=== PATIENT | male | born 1980 | race Caucasian/White ===

== ENCOUNTER 2025-10-15 09:55 | Emergency (ER) | payer OTHER, SELFPAY ==
--- OUTSIDE RECORDS SUMMARY | 2025-03-10 08:15 | XMS_ITS | Continuity of Care Document ---
Author Organization [facility] Address [address] [place] [place] [address] Phone Care Team Providers Care Planer Offbearer Name Role Phone Marlene Talbert Unavailable Unavailable Allergies, Adverse Reactions, Alerts Substance Reaction Status Criticality No Known Allergies Active No Inform ation Medications Medication Instructions Dosage Effective Dates (start - stop) Status Comments Kenalog 40 mg/mL suspension for injection Administered in the office - No Longer Active Kenalog 40 mg/mL suspension for injection Administered in the office - No Longer Active dexamethasone sodium phosphate 10 mg/mL injection solution Administered in the office - No Longer Active amoxicillin 875 mg-potassium clavulanate 125 mg tablet take 1 tablet by oral route every 12 hours 1.00 tablet - No Longer Active Procedures Procedure Date Decadron Dexamethasone sodium phos Per1 Mg Inj Kenalog Triamcinolone acetonide Inj Per 10mg Kenalog Triamcinolone acetonide Inj Per 10mg THER/PROPH/DIAG INJ, SC/IM OFFICE/OUTPATIENT VISIT, NEW Advance Directives Directive Yes / No Effective Date File Name No Information Encounters Encounter Description Practice Location Reason(s) For Visit Diagnoses Date Provider Providers Copied on Encounter OFFICE/OUTPA TIENT VISIT, NEW [facility], [address], [place], [place], [id number], [place] tel:[phone] [facility] Sinus symptoms (chief complaint) Upper respiratory infectionUnspecified acute lower respiratory infectionShortness of breathCough Jd Rosario. [address], [address], [place], [address], . [phone] Referring Provider: Marlene Miles, [address], [place], [address]. tel:[phone] Family History Family Member Type Diagnosis Age At Onset Problem Family history of Alzheimer' s disease Problem Family history of Diabetes m ellitus Problem Family history of Hypertensi on Problem Family history of Cardiovasc ular disease Problem Family history of Cancer, un known type Payers Payer name Insurance type Covered green party ID Robert martins(s) formerly [facility] [id number] Social History Type Description Quantity Date Captured Comments Alcohol Use Details Unknown Caffeine Use Details Unknown Tobacco Use Status Current non-smoker Smoking Status Never smoker Non-Smoking Tobacco Use Details : No Details Available : No Details Available Sex Male Vital Signs Date / Time: Height Weight BMI Pulse Rate Blood Pressure Temperature Respiratory Rate Body Surface Area Head Circumference Head Circ. Percentile Wt./[place]. Percentile BMI percentile Pulse Ox Inhaled Ox 2:31 PM 68.00 in 81.647 kg (180.00 lbs) 27.3 7 kg/m eter (2) 89 /min 146/98 mm[Hg] 98.30 F 15 /min 99 % Chief Complaint And Reason For Visit From encounter dated '03/10/2025 14:15'. Sinus symptoms (chief complaint). Description: Onset: 3 Days. The severity of the problem is mild. The problem has worsened. The symptoms are intermittent. Both sides are affected. Pertinent/initial symptoms include facial pain, facial pressure, sinus congestion, sinus pain and sinus pressure. Symptoms are associated with recent URI. Aggravating factors include dry air and leaning forward. Deniesrelieving factors. Associated symptoms include cough, headache, nasal drainage, postnasal drainage,rhinorrhea, sinus pressure and sore throat. Pertinent negatives include anosmia, dental disease, deviated septum, fever, halitosis, immunosuppression, nasal obstruction, orbital swelling, otalgia, too th pain or tooth sensitivity. Additional information: Pt presents to with c/o URI s/s. Pt reports clear mucous, headache, postnasal drainage, and sinus pain/pressure. Reason For Referral Reason For Referral No Information Plan Of Treatment Date Type Action Status Goal Tdap. Due on due Goal Lipid panel. Due on 025 due Goal Influenza vaccine. Due on due Goal Depression screening. Due on due Goal Hepatitis C screening. Due o n due Goal Unhealthy drug use screening . Due on due Goal Td vaccine. Due on due History Of Present Illness Encounter Date Complaint History Of Prese nt Illness Sinus symptoms Onset: 3 Days. T he severity of the problem is mild. The problem has worsened. The symptoms are intermittent. Both sides are affected. Pertinent/initial symptoms include facial pain, facial pressure, sinus congestion, sinus pain and sinus pressure. Symptoms are associated with recent URI. Aggravating factors include dry air and leaning forward. Denies relieving factors. Associated symptoms include cough, headache, nasal drainage, postnasal drainage, rhinorrhea, sinus pressure and sore throat. Pertinent negatives include anosmia, dental disease, deviated septum, fever, halitosis, immunosuppression, nasal obstruction, orbital swelling, otalgia, tooth pain or tooth sensitivity. Additional information: Pt presents to with c/o URI s/s. Pt reports clear mucous, headache, postnasal drainage, and sinus pain/pressure. Functional Status Date Functional Assessmen t No Information Instructions Date Instruction Additional Infor sweta 10 mg dexamethasone and 40 mg kenalog IM injection given in clinic today. Patient education given on medication and side effects. Related to Unspecified acute lower respiratory infection Provider suspects UR I. Possible Prescribed amoxicillin potassium clavulanate. Patient advised to drink plenty of clear fluids and to use tylenol or ibuprofen PRN pain/fever. Patient educated on typical 7 - 14 day length of time for most viral URIs. Patient is to RTC if fever develops, worsening facial pain, copious amounts of thick, colored drainage, cough that causes SOB or wheezing, or symptoms persist. Patient had no further questions at this time. Provider ordered IM dexamethasone and triamcinolone. Injection area cleaned using a new isopropyl alcohol preparation pad prior to administration. 10 mg Decadron with 40 mg Kenalog administered intramuscularly in left dorsogluteal muscle using aseptic technique and a 22 gauge 1.5 needle. Needle removed intact. Injection site covered with a new, clean, adhesive bandage. Patient tolerated without complaint. Related to Upper respiratory infection Assessments Type Assessment Date assessment Upper respiratory infection assessment Unspecified acute lower respirat ory infection assessment Shortness of breath assessment Cough impression Patient presented to clinic with 3 days of cough, nasal congestion with yellow drainage, fatigue, sinus pressure at the maxillary sinuses, headache and chest congestion. Lungs are coarse bilaterally on auscultation. Patient states that he is subject to sick contacts at work. He has been using mucinex and sudafed and it is helping a little. Mental Status Date Cognitive Assessment Orientation - Lock[place] ed to time, place, person, situation. Patient Care Teams Name Effective Dates (start - stop) Status Members No Information
[2025-10-15 09:58] VITALS: BP 166/108; PULSE 106; RESP 17; TEMP 36.4; O2SAT 98; BMI 25.0
--- NOTE | 2025-10-15 10:01 | CTR_ITS ---
PROCEDURE INFORMATION: Exam: CT Abdomen And Pelvis With Contrast Exam date and time: 10/15/2025 10:11 AM Age: 45 years old Clinical indication: Abdominal pain; Localized; Left lower quadrant (llq); Prior surgery; Surgery date: 6+ months; Surgery type: Umbilical hernia with mesh; Additional info: Llq pain TECHNIQUE: Imaging protocol: Computed tomography of the abdomen and pelvis with contrast. Radiation optimization: All CT scans at this facility use at least one of these dose optimization techniques: automated exposure control; mA and/or kV adjustment per patient size (includes targeted exams where dose is matched to clinical indication); or iterative reconstruction. Contrast material: OMNIPAQUE; Contrast volume: 100 ml; Contrast route: INTRAVENOUS (IV); COMPARISON: No relevant prior studies available. RADIATION DOSE METRICS: Total DLP (mGy-cm): 486.5 FINDINGS: Liver: Normal. No mass. Gallbladder and biliary ducts: Normal. No calcified stones. No ductal dilation. Pancreas: Normal. No ductal dilation. Spleen: Normal. No splenomegaly. Adrenal glands: Normal. No mass. Kidneys and ureters: Few bilateral renal cysts are identified. There is no hydronephrosis. Stomach and bowel: There is sigmoid colon diverticulosis identified with an inflamed sigmoid colon diverticulum best seen from images 59-61 of series 3. There is abnormal thickening of the wall of most of the sigmoid colon. There is no bowel obstruction. Appendix: No evidence of appendicitis. Intraperitoneal space: Unremarkable. No free air. No significant fluid collection. Vasculature: Unremarkable. No abdominal aortic aneurysm. Lymph nodes: Unremarkable. No enlarged lymph nodes. Urinary bladder: Unremarkable as visualized. Reproductive: Unremarkable as visualized. Bones/joints: Unremarkable. No acute fracture. Soft tissues: Unremarkable. CT/CT abdomen pelvis w con* [id number] IMPRESSION: Sigmoid diverticulitis/colitis. COMMENTS: Consistent with the [employer]'s Incidental Findings Committee white paper (J Am Jim Radiol 2018): Any incidental renal lesion less than 1 cm or classified as too small to characterize, or any incidental cystic renal lesion characterized as simple-appearing, is likely benign. No follow-up imaging is recommended for these lesions per consensus recommendations based on imaging criteria.
--- NOTE | 2025-10-15 10:01 | ED_ITS ---
HPI - Abdominal Pain 2 General: Chief Complaint: Abdominal Pain Stated Complaint: Lower L ABD Pain x2 days Time Seen by Provider: 10/15/25 09:58 Source: patient Mode of arrival: ambulatory Limitations: no limitations History of Present Illness: 45-year-old male states been had left lo wer quadrant abdominal pain over the last 2 days. States pains been sharp in nature he rates it a 6 out of 10 and is worse with palpation. He denies any fevers denies any vomiting or diarrhea. Has had a history of a hernia repair in the past no history of diverticulitis. Related Data Previous Rx's ?Medication ?Instructions ?Recorded ciprofloxacin HCl 500 mg tablet 500 mg PO BID #14 tabs 10/15/25 (Cipro) hydrocodone 5 mg-acetaminophen 325 1 tab PO Q6H PRN pa in #14 tabs 10/15/25 mg tablet metronidazole 500 mg tablet 500 mg PO Q8H 7 days #21 t abs 10/15/25 ondansetron 4 mg disintegrating 4 mg PO Q6H PRN nausea and 10/15/25 tablet vomiting #14 tabs Allergies Allergy/AdvReac Type Severity Reaction Status Date / Time No Known Allergies Allergy Verified 10/15/25 10:07 Review of Systems 2 GI: Reports: abdominal pain Physical Exam 2 Const: COMMON NORMALS: no acute distress, patient oriented x3 and healthy appearing HENMT: COMMON NORMALS: normocephalic and atraumatic HEAD & SCALP: n ormocephalic and atraumatic Neck/C-Spine: COMMON NORMALS: full ROM and supple Chest: COMMONS NORMALS: normal inspection of the chest Resp: COMMON NORMALS: normal respiratory effort, No retractions, No use of accessory muscles and clear to auscultation bilaterally AUSCULTATION: clear to auscultation bilaterally Cardio: COMMON NORMALS: regular rate, regular rhythm and No murmurs present (Cardio) RATE: regular rate RHYTHM: regular rhythm GI: COMMON NORMALS: Normal to inspection, nondistended, normoactive bowel sounds present, Soft to palpation and no masses PALPATION: Yes Soft to palpation and Yes Tenderness to palpation present (GI) Details: LLQ Extremity: COMMON NORMALS: normal to inspection and full ROM Neuro: COMMON NORMALS: patient oriented x3, moves all extremities and no focal motor deficits Psych: COMMON NORMALS: mental status grossly normal, Normal thought process present and cooperative THOUGHT PROCESS: Normal thought process present Skin: COMMON NORMALS: no rashes or lesions noted and no wounds GENERAL SKIN EXAM: no rashes or lesions noted Course 2 Vital Signs: Vital signs: Vital Signs Temperature 97.6 F 10/15/25 09:58 Pulse Rate 106 H 10/15/25 09:58 Respiratory Rate 17 10/15/25 09:58 Blood Pressure 166/108 10/15/25 09:58 Pulse Oximetry 98 10/15/25 09:58 Oxygen Delivery Me thod Room Air 10/15/25 09:58 MDM - Abdominal Pain Medical Decision Making 45-year-old male presents here with lower abdominal pain for 2 days. Differential includes diverticulitis, bowel obstruction, appendicitis. Patient's blood work shows no significant abnormality white count here is normal he is afebrile here. CT does show a diverticulitis likely cause of his pain. I feel he is able to be treated outpatient will start him on Cipro Flagyl, hydrocodone and Zofran. Will get him follow-up with surgery I did go over all these findings with patient. He is to return if worsening he understands agrees to plan. Medical Records I reviewed the patient's medical records. Lab Data I reviewed the patient's lab results. 10/15/25 10:10 10/15/25 10:10 Labs/Radiology: Radiology Impressions Abdomen/Pelvis CT 10/15/25 10:01 IMPRESSION: Sigmoid diverticulitis/colitis. COMMENTS: Consistent with the [employer]'s Incidental Findings Committee white paper (J Am Jim Radiol 2018): Any incidental renal lesion less than 1 cm or classified as too small to characterize, or any incidental cystic renal lesion characterized as simple-appearing, is likely benign. No follow-up imaging is recommended for these lesions per consensus recommendations based on imaging criteria. Laboratory Results WBC 7.02 10^3/uL (3.29-11.43) 10/15/25 10:10 RBC 5.79 10^6/uL (3.85-5.65) H 10/15/25 10:10 Hgb 14.20 g/dL (11.27-16.99) 10/15/25 10:10 Hct 43.7 % (37-53) 10/15/25 10:10 MCV 75.5 fl (82-101) L 10/15/25 10:10 MCH 24.5 pg (27-33) L 10/15/25 10:10 MCHC 32.5 g/dL (30-55) 10/15/25 10:10 RDW 13.1 % (12.1-15.1) 10/15/25 10:10 Plt Count 257 10^3/cmm (157-399) 10/15/25 10:10 MPV 10.2 fL (7.4-10.4) 10/15/25 10:10 Neut % (Auto) 79.5 % 10/15/25 10:10 Lymph % (Auto) 14.2 % 10/15/25 10:10 [place] % (Auto) 4.8 % 10/15/25 10:10 Eos % (Auto) 0.6 % 10/15/25 10:10 Baso % (Auto) 0.6 % 10/15/25 10:10 Neut # (Auto) 5.58 10^3/uL (1.8-7.7) 10/15/25 10:10 Lymph # (Auto) 1.0 10^3/uL (0.8-4.8) 10/15/25 10:10 [place] # (Auto) 0.3 10^3/uL (0.2-0.9) 10/15/25 10:10 Eos # (Auto) 0.0 10^3/uL (0.0-0.8) 10/15/25 10:10 Baso # (Auto) 0.0 10^3/uL (0.0-0.1) 10/15/25 10:10 Nucleated RBC % (auto) 0 % 10/15/25 10:10 Nucleated RBCs # 0.0 /100WBC 10/15/25 10:10 Sodium 137 mmol/L (136-145) 10/15/25 10:10 Potassium 3.4 mmol/L (3.5-5.1) L 10/15/25 10:10 Chloride 99 mmol/L (98-107) 10/15/25 10:10 Carbon Dioxide 25 mmol/L (22-29) 10/15/25 10:10 Anion Gap 16.4 (5-19) 10/15/25 10:10 BUN 16 mg/dL (6-20) 10/15/25 10:10 Creatinine 0.9 mg/dL (0.7-1.2) 10/15/25 10:10 GFR Calculation 92.1 mL/min (90-130) 10/15/25 10:10 Glucose 102 mg/dL (65-115) 10/15/25 10:10 Calculated Osmolality 285 mOsm/kg (285-295) 10/15/25 10:10 Calcium 9.3 mg/dL (8.5-10.5) 10/15/25 10:10 Total Bilirubin 0.6 mg/dL (0.15-1.2) 10/15/25 10:10 AST 18 U/L (0-40) 10/15/25 10:10 ALT 18 U/L (0-41) 10/15/25 10:10 Alkaline Phosphatase 80 U/L (40-130) 10/15/25 10:10 Total Protein 7.9 g/dL (6.6-8.7) 10/15/25 10:10 Albumin 4.8 g/dL (3.5-5.2) 10/15/25 10:10 Globulin 3.1 g/dL (1.3-4.6) 10/15/25 10:10 Lipase 113 U/L (13-60) H 10/15/25 10:10 All radiology interpretation(s) finalized by discharge Discharge Plan Discharge Patient Disposition: Home Clinical Impression: Diverticulitis Condition: Stable Prescriptions: New hydrocodone-acetaminophen 5-325 mg tablet 1 tab PO Q6H PRN (Reason: pain) Qty: 14 0RF metronidazole 500 mg tablet 500 mg PO Q8H 7 Days Qty: 21 0RF ciprofloxacin HCl [Cipro] 500 mg tablet 500 mg PO BID Qty: 14 0RF ondansetron 4 mg tablet,disintegrating 4 mg PO Q6H PRN (Reason: nausea and vomiting) Qty: 14 0RF Discharge Orders: Discharge ED (Routine); Ordered 10/15/25 Ordered By: Luis Dooley Referrals: Fernando Park MD [Physician, General Surgery] - 4-7 days Discharge Diet: Advance as tolerated Discharge Activity: Resume usual activity Patient Instructions: Diverticulitis (ED), Opioid Safety Print Language: German Coding Level of Care Code ED Towboat Engineer for Rachel Amanda
--- OUTSIDE RECORDS SUMMARY | 2025-10-15 10:05 | XMS_ITS | Encounter Summary ---
Author Organization [facility] Address [address] [place] [address] Care Team Providers Care Swing Grinder Name Role Phone Unavailable Primary Care Provider Unavailabl e Encounter Details Date Type Department Care Team (Latest Contact Info) Description 07/11/1999 Outpatient Historical [facility] [address] [place] [phone] Araceli Boyer DO NO ADDRESS ON FILE Unspecified gastritis and gastroduodenitis without mention of hemorrhage (Primary Dx); Acute pharyngitis Social History Tobacco Use Types Packs/Day Years Used Date Smoking Tobacco: Never Assessed Sex and Gender Information Value Date Recorded Sex Assigned at Not on file 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
--- OUTSIDE RECORDS SUMMARY | 2025-10-15 10:05 | XMS_ITS | Encounter Summary ---
Author Organization [facility] Address [address] [place] [address] Care Team Providers Care Career Development Coordinator/Teacher Name Role Phone Unavailable Primary Care Provider Unavailabl e Encounter Details Date Type Department Care Team (Latest Contact Info) Description 09/03/1999 Outpatient Historical [facility] [address] [place] [address] Araceli Boyer, NO ADDRESS ON FILE Injury, other and unspecified, trunk (Primary Dx); Allergic rhinitis, cause unspecified Social History Tobacco Use Types Packs/Day Years Used Date Smoking Tobacco: Never Assessed Sex and Gender Information Value Date Recorded Sex Assigned at Not on file 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
--- OUTSIDE RECORDS SUMMARY | 2025-10-15 10:05 | XMS_ITS | Encounter Summary ---
Author Organization [facility] Address [address] [place] [address] Care Team Providers Care Boring Machine Set Up Operator Name Role Phone Unavailable Primary Care Provider Unavailabl e Encounter Details Date Type Department Care Team (Latest Contact Info) Description 07/05/1999 Outpatient Historical [facility] [address] [place] [phone] Araceli Boyer DO NO ADDRESS ON FILE Ingrowing nail (Primary Dx) Social History Tobacco Use Types Packs/Day Years Used Date Smoking Tobacco: Never Assessed Sex and Gender Information Value Date Recorded Sex Assigned at Not on file 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
--- OUTSIDE RECORDS SUMMARY | 2025-10-15 10:05 | XMS_ITS | Encounter Summary ---
Author Organization [facility] Address [address] [place] [address] Care Team Providers Care Fish And Wildlife Warden Name Role Phone Unavailable Primary Care Provider Unavailabl e Encounter Details Date Type Department Care Team (Late st Contact Info) Description 03/25/2002 Outpatient Historical [facility] Antonio Brewster II, DO [facility] Administrative Community Team [address] [place], [place] [phone] MALE GENITAL DIS NOS (Primary Dx) Social History Tobacco Use Types Packs/Day Years Used Date Smoking Tobacco: Never Assessed Sex and Gender Information Value Date Recorded Sex Assigned at Not on file 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
--- OUTSIDE RECORDS SUMMARY | 2025-10-15 10:05 | XMS_ITS | Encounter Summary ---
Author Organization [facility] Address [address] [place] [address] Care Team Providers Care Dampener Name Role Phone Unavailable Primary Care Provider Unavailabl e Encounter Details Date Type Department Care Team (Latest Contact Info) Description 06/15/[address] 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
--- OUTSIDE RECORDS SUMMARY | 2025-10-15 10:06 | XMS_ITS | Encounter Summary ---
Author Organization [facility] Address [address] [place] [address] Care Team Providers Care Brusher Operator Name Role Phone Unavailable Primary Care Provider Unavailabl e Encounter Details Date Type Department Care Team (Latest Contact Info) Description 09/10/1999 Outpatient Historical [facility] [address] [place] [phone] Araceli Boyer DO NO ADDRESS ON FILE Chest pain, unspecified (Primary Dx) Social History Tobacco Use Types Packs/Day Years Used Date Smoking Tobacco: Never Assessed Sex and Gender Information Value Date Recorded Sex Assigned at Not on file 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
--- OUTSIDE RECORDS SUMMARY | 2025-10-15 10:06 | XMS_ITS | Encounter Summary ---
Author Organization [facility] Address [address] [place] [address] Care Team Providers Care Sensory Scientist Name Role Phone Unavailable Primary Care Provider Unavailabl e Encounter Details Date Type Department Care Team (Late st Contact Info) Description 12/09/2004 Emergency [facility] Emergency Department [address] 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
--- OUTSIDE RECORDS SUMMARY | 2025-10-15 10:06 | XMS_ITS | Encounter Summary ---
Author Organization [facility] Address [address] [place] [address] Care Team Providers Care Analytical Strategist Name Role Phone Unavailable Primary Care Provider Unavailabl e Encounter Details Date Type Department Care Team (Latest Contact Info) Description 09/21/2007 Outpatient Historical 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
--- OUTSIDE RECORDS SUMMARY | 2025-10-15 10:06 | XMS_ITS | Encounter Summary ---
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
--- OUTSIDE RECORDS SUMMARY | 2025-10-15 10:06 | XMS_ITS | Encounter Summary ---
Author Organization [facility] Address [address] [place] [address] Care Team Providers Care Plastic Surgeon Name Role Phone Unavailable Primary Care Provider Unavailabl e Encounter Details Date Type Department Care Team (Late st Contact Info) Description 01/10/2005 Emergency [facility] Emergency Department [address] 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
--- OUTSIDE RECORDS SUMMARY | 2025-10-15 10:06 | XMS_ITS | Encounter Summary ---
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
--- OUTSIDE RECORDS SUMMARY | 2025-10-15 10:06 | XMS_ITS | Encounter Summary ---
Author Organization [facility] Address [address] [place] [address] Care Team Providers Care Optical Laboratory Manager Name Role Phone Unavailable Primary Care Provider Unavailabl e Encounter Details Date Type Department Care Team (Late st Contact Info) Description 12/10/2004 Emergency [facility] Emergency Department [address] 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
--- OUTSIDE RECORDS SUMMARY | 2025-10-15 10:06 | XMS_ITS | Encounter Summary ---
Author Organization [facility] Address [address] [place] [address] Care Team Providers Care Short Piece Handler Name Role Phone Unavailable Primary Care Provider Unavailabl e Encounter Details Date Type Department Care Team (Late st Contact Info) Description 01/14/[address] 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
--- OUTSIDE RECORDS SUMMARY | 2025-10-15 10:06 | XMS_ITS | Encounter Summary ---
Author Organization [facility] Address [address] [place] [address] Care Team Providers Care Body Mechanic Apprentice Name Role Phone Unavailable Primary Care Provider Unavailabl e Encounter Details Date Type Department Care Team (Late st Contact Info) Description 08/11/2003 Emergency [facility] Emergency Department [address] 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
--- OUTSIDE RECORDS SUMMARY | 2025-10-15 10:06 | XMS_ITS | Clinical Summary ---
Author Organization [facility] Address [address] [place] [address] Care Team Providers Care Stationary Steam Engineer Name Role Phone Unavailable Primary Care Provider Unavailabl e Allergies No known active allergies Medications traMADol (ULTRAM) 50 mg Oral tablet Take 1 Tab by mouth every 6 hours as needed for Pain. Take 1-2 tablets every 6 hours as needed for pain; TO DISPENSE FROM ER 4 Tab None 01/14/2013 Active traMADol (ULTRAM) 50 mg Oral tablet Take 1 Tab by mouth every 6 hours as needed for Pain. 15 Tab None 01/14/2013 Active methocarbamol (ROBAXIN) 750 mg Oral tablet Take 1 Tab by mouth 4 times daily. TO DISPENSE FROM ER 1 Tab None 01/14/2013 Active methocarbamol (ROBAXIN) 750 mg Oral tablet Take 1 Tab by mouth every 8 hours as needed for Spasm. 20 Tab 0 01/14/2013 Active Immunizations Immunization Administration Dates Next Due (TDVAX)(7 YRS UP) TETANUS AN D DIPHTHERIA TOXOIDS, ADSORBED (2 LF OF TETANUS TOXOID AND 2 LF OF DIPHTHERIA TOXOID), 0.5ML (PF), IM 01/12/1998 Dt Dtp Dtap Vaccine 04/09/1988, 4,05/07/1983,1982,1982 Hepatitis B Vaccine 05/15/1998,02/09/1998,1997 IPV/OPV 04/09/1988, 4,05/07/1983,1982,01/07/1983 Family History Medical History Relation Name Comments Healthy Brother 1/2 Hypertension Brother 1/2 Cancer Father Unknown Maternal Grandfather Breast Cancer Maternal Grandmother Colon Cancer Maternal Grandmother Cancer Mother Hypertension Mother Other Mother muscular degene ration Relation Name Status Comments Brother 1/2 Alive Father Maternal Grandfather Maternal Grandmother Mother Alive Social History Tobacco Use Types Packs/Day Years Used Date Smoking Tobacco: Never Alcohol Use Standard Drinks/Week Comments No 0 (1 standard drink = 0.6 oz pur e alcohol) Sex and Gender Information Value Date Recorded Sex Assigned at Not on file Legal Sex Male 5:17 AM SALES AGENT Gender Identity Not on file Sexual Orientation Not on file Occupation Industry Job Start Date Job End Date Not on file Not on file Not on file Not on file Last Filed Vital Signs Vital Sign Reading Time Taken Comments Blood Pressure 146/99 01/14/2013 7:28 PM SALES AGENT Pulse 70 01/14/2013 7:28 PM SALES AGENT Temperature 36.2 C (97.1 F) 01/14/2013 6:51 PM SALES AGENT Respiratory Rate 20 01/14/2013 7:28 PM SALES AGENT Oxygen Saturation 97% 01/14/2013 7:28 PM SALES AGENT Inhaled Oxygen Concentration - - Weight 81.8 kg (180 lb 6.4 oz) 01/14/2013 6:51 P M SALES AGENT Height 172.7 cm (5' 8 ) 09/26/2009 1:50 PM SALES AGENT Body Mass Index 27.43 09/26/2009 1:50 PM SALES AGENT Plan of Treatment Health Maintenance Due Date Last Done Comments DTAP/TDAP/TD VACCINES (6 - Tdap) 01/13/1998 01/12/1998, 04/09/1988, 05/08/1984, Additional history exists INFLUENZA VACCINE (#1) 2025 HEPATITIS B VACCINES Completed 05/15/1998, 02/09/1998, 01/12/1998 HPV VACCINES (No Doses Required) Completed Insurance [employer]
--- OUTSIDE RECORDS SUMMARY | 2025-10-15 10:06 | XMS_ITS | Clinical Summary ---
Author Organization [employer] Address [address] [facility] Attn: Epic Prelude ADT [place] [address] Care Team Providers Care Molder Feeder Name Role Phone Johnny Cornelius MD Primary Care Provider [phone] Allergies No known active allergies Medications HYDROcodone-aceta minophen (NORCO) 5-325 mg tabletIndications :Umbilical hernia without obstruction and without gangrene Take 1 Tablet by mouth every 4 hours as needed for Pain. Max Daily Amount: 6 Tablets 20 Tablet 4 Active erythromycin (ILOTYCIN) 5 mg/gram (0.5 %) ointment INSTILL OINTMENT INTO EACH EYE 4 TIMES DAILY 4 Active lisinopriL (PRINIVIL) 40 mg tabletIndications :Benign hypertension Take 1 Tablet (40 mg) by mouth daily. 90 Tablet 3 5 Active gabapentin (NEURONTIN) 300 mg capsuleIndication s:Other chronic pain Take one capsule (300 mg) once daily for one week, then one capsule (300 mg) twice daily 60 Capsule 1 5 Active Active Problems Problem Noted Date Diagnosed Date Non compliance w medication regimen 04/13/2025 Lactose intolerance 04/13/2025 Vitamin D deficiency 04/13/2025 History of umbilical hernia 04/13/2025 History of gastric ulcer 02/09/2025 Marijuana use 02/09/2025 Benign hypertension 12/28/2024 Dyslipidemia 12/28/2024 Other chronic pain 12/28/2024 Family history of colon cancer in father 025 Encounters Date Type Department Care Team Description 10/11/2025 External Device Data [facility] ABSTRACTION Provider, Abstract 09/13/2025 External Device Data ST[facility] ABSTRACTION Provider, Abstract 09/07/2025 External Device Data [facility] ABSTRACTION Provider, Abstract 09/07/2025 External Device Data [facility] ABSTRACTION Provider, Abstract 08/30/2025 External Device Data [facility] ABSTRACTION Provider, Abstract from Last 3 Months Immunizations Immunization Administration Dates Next Due (ADACEL/BOOSTRIX)(10 YR UP) TDAP VACCINE, 0.5ML, IM 04/13/2025 (TDVAX)(7 YRS UP) TETANUS AN D DIPHTHERIA TOXOIDS, ADSORBED (2 LF OF TETANUS TOXOID AND 2 LF OF DIPHTHERIA TOXOID), 0.5ML (PF), IM 01/12/1998 Diptheria, Tetanus Toxoids, And Whole Cell Pertussis Vaccine (DTP), for intramuscular use 04/09/1988,05/08/1984,05/07/1983,02/26,1982 Dt Dtp Dtap Vaccine 04/09/1988, 4,05/07/1983,02/26,1982 Hepatitis B Vaccine 05/15/1998,02/09/1998,1997 Hepatitis B Vaccine, Unspeci fied Formulation 05/15/1998,02/09/1998,01/12/1998 IPV/OPV 04/09/1988, 4,05/07/1983,02/26,01/07/1983 Poliovirus Vaccine Live Oral 04/09/1988, 05/08/1984,05/07/1983,02/26,01/07/1983 Family History Medical History Relation Name Comments Healthy Brother 1/2 Hypertension Brother 1/2 Cancer Father Unknown Maternal Grandfather Breast Cancer Maternal Grandmother Colon Cancer Maternal Grandmother Cancer Mother Hypertension Mother Other Mother muscular degene ration Relation Name Status Comments Brother 1/2 Alive Father Maternal Grandfather Maternal Grandmother Mother Alive Social History Tobacco Use Types Packs/Day Years Used Date Smoking Tobacco: Never Tobacco Cessation:Counseling Given: No Alcohol Use Standard Drinks/Week Comments No 0 (1 standard drink = 0.6 oz pur e alcohol) Feeling Safe Answer Date Recorded Are you in a relationship wi th someone who hurts you emotionally and/or physically? No 01/02/2024 Sex and Gender Information Value Date Recorded Sex Assigned at Not on file Legal Sex Male 7:07 AM PUBLIC TRANSIT TROLLEY DRIVER Gender Identity Not on file Sexual Orientation Not on file Last Filed Vital Signs Vital Sign Reading Time Taken Comments Blood Pressure 140/102 04/13/2025 8:42 AM CDT Pulse 86 04/13/2025 8:12 AM CDT Temperature 36.2 C (97.1 F) 04/13/2025 8:12 AM CDT Respiratory Rate 16 01/02/2024 10:45 AM PUBLIC TRANSIT TROLLEY DRIVER Oxygen Saturation 96% 04/13/2025 8:12 AM CDT Inhaled Oxygen Concentration - - Weight 85.3 kg (188 lb) 04/13/2025 8:12 AM CDT Height 172.7 cm (5' 8 ) 04/13/2025 8:12 AM CDT Body Mass Index 28.59 04/13/2025 8:12 AM CDT Plan of Treatment Upcoming Encounters Date Type Department Care Team (Late st Contact Info) Description 11/17/2025 9:20 AM PUBLIC TRANSIT TROLLEY DRIVER Hospital Encounter [facility] Endoscopy [address] [place] [address] Michael Goodrich, DO [address] [address] 11/17/2025 9:20 AM PUBLIC TRANSIT TROLLEY DRIVER - 11/17/2025 9:40 AM PUBLIC TRANSIT TROLLEY DRIVER Surgery [facility] Endoscopy [address] [place] [address] Michael Goodrich, DO [address] [address] COLONOSCOPY Scheduled Procedures Name Priority Associated Diagnoses Date/Ti me COLONOSCOPY Family history of colon cancer in father 11/17/2025 9:20 AM PUBLIC TRANSIT TROLLEY DRIVER Health Maintenance Due Date Last Done Comments HPV VACCINES (1 - 3-dose SCD M series) 2009 INFLUENZA VACCINE (#1) 2025 Pre-Diabetes and Diabetes Screening 04/13/2028 04/13/2025 DTAP/TDAP/TD VACCINES (7 - T d or Tdap) 04/13/2035 04/13/2025, 01/12/1998, 04/09/1988, Additional history exists HEPATITIS B VACCINES Completed 05/15/1998, 05/15/1998, 02/09/1998, Additional history exists Preventative Visit- Commercial Completed 04/13/2025 Goals Goal Patient Goal Type Associated Problems Recent Progress Patient-Stated? Author Autogenerat ed Goal Care Plan Autogenerated Problem No Carolyn Canas Medical Devices Implanted Type Area Afloat Cryptologic Manager Device Identifier Shelf Expiration Date Model / Serial / Lot Tacker Optifix 30 Per Load [id number] - [id number] Implanted:Qty: 1 on 01/02/2024 by Gustavo Sue DO at [facility] [place] N/A: Abdomen BARD DAVOL 06/06/2025 [id number] / / [id number] Tacker Optifix 30 Per Load [id number] - [id number] Implanted:Qty: 1 on 01/02/2024 by Gustavo Sue DO at [facility] [place] N/A: Abdomen BARD DAVOL 06/06/2025 [id number] / / [id number] Mesh Ventralight Ellipse 4x6in [id number] - [id number] Implanted:Qty: 1 on 01/02/2024 by Gustavo Sue DO at [facility] [place] N/A: Abdomen BARD DAVOL 07/07/2025 [id number] / / [id number] Procedures Procedure Name Priority Date/Time Associated Diagnosis Comments HEMOGLOBIN A1C Routine 04/13/2025 9:11 AM CDT Annual physical exam from Last 3 Months or Most Recently Relevant to Health Maintenance Results * (ABNORMAL) HEMOGLOBIN A1C (04/13/2025 9:11 AM CDT) HEMOGLOBIN A1C 5.8(H) <5.7 % [facility] Comment: For someone without known diabetes, a hemoglobin A1c value between 5.7% and 6.4% is consistent with prediabetes and should be confirmed with a follow-up test. For someone with known diabetes, a value <7% indicates that their diabetes is well controlled. A1c targets should be individualized based on duration of diabetes, age, comorbid conditions, and other considerations. This assay result is consistent with an increased risk of diabetes. Currently, no consensus exists regarding use of hemoglobin A1c for diagnosis of diabetes for children. ESTIMATED AVERAGE GLUCOSE (MG/DL) 120 mg/dL [facility] ESTIMATED AVERAGE GLUCOSE (MMOL/L) 6.6 mmol/L [facility] Comment: Test Performed at: [facility] [id number] [address] Zeinab Jordan MD Blood 04/13/2025 9:11 AM CDT 04/14/2025 2:48 AM CDT us Jennifer Chiu LABOR CUSTODIAN CHEMISTRY ORDERABLES Final Resu lt [facility] [phone] [facility] [address] [place] [address] from Last 3 Months or Most Recently Relevant to Health Maintenance Additional Health Concerns Active Problems Noted Date Diagnosed Date Autogenerated Problem 06/23/2025 Insurance [facility] [place] [address] [facility] OPEN ACCESS HMO TRAVELERS Advance Directives For more information, please contact: [phone] * Full Code (Latest Code Status on File) Date Activated Date Inactivated Comments 01/02/2024 8:58 AM 01/02/2024 1:19 PM * Full Code Date Activated Date Inactivated Comments 01/02/2024 7:42 AM 01/02/2024 8:58 AM * Full Code Date Activated Date Inactivated Comments 01/02/2024 7:11 AM 01/02/2024 7:42 AM Care Teams Molder Feeder Relationship Specialty Start Date End Date Johnny Cornelius MD [address] [place] [address] PCP - General Family Practice 12/28/24
--- OUTSIDE RECORDS SUMMARY | 2025-10-15 10:06 | XMS_ITS | Encounter Summary ---
Author Organization [facility] Address [address] [place] [address] Care Team Providers Care Claim Manager Name Role Phone Unavailable Primary Care Provider Unavailabl e Encounter Details Date Type Department Care Team (Latest Contact Info) Description 12/11/2004 Outpatient Historical [facility] Plastic Surgery 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
--- OUTSIDE RECORDS SUMMARY | 2025-10-15 10:06 | XMS_ITS | Encounter Summary ---
Author Organization [facility] Address [address] [place] [address] Care Team Providers Care Ultrasound Spec Name Role Phone Unavailable Primary Care Provider Unavailabl e Encounter Details Date Type Department Care Team (Latest Contact Info) Description 09/21/2007 Outpatient Historical [facility] Gastroenterology- [place] [address] [address] Enzo Kumar MD [address] [address] Other Specified Disorder of Intestines (Primary Dx); Rectal/Anal Hemorrhage Social History Tobacco Use Types Packs/Day Years Used Date Smoking Tobacco: Never Assessed Sex and Gender Information Value Date Recorded Sex Assigned at Not on file Legal Sex Male 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
--- OUTSIDE RECORDS SUMMARY | 2025-10-15 10:06 | XMS_ITS | Encounter Summary ---
Author Organization [facility] Address [address] [place] [address] Care Team Providers Care Contact Lens Molder Name Role Phone Johnny Cornelius MD Primary Care Provider [phone] Encounter Details Date Type Department Care Team (Late st Contact Info) Description 10/11/2025 External Device Data [facility] ABSTRACTION Provider, Abstract NO ADDRESS ON FILE Social History Tobacco Use Types Packs/Day Years [...] on file Legal Sex Male 7:07 AM EXTRACTOR OPERATOR SOLVENT PROCESS Gender Identity Not on file Sexual Orientation Not on file documented as of this encounter Plan of Treatment Upcoming Encounters Date Type Department Care Team (Late Contact Info) Description 11/17/2025 9:20 AM EXTRACTOR OPERATOR SOLVENT PROCESS Hospital Encounter [facility] Endoscopy [address] [place] [address] Michael Goodrich, DO [address] [place] [address] 11/17/2025 9:20 AM EXTRACTOR OPERATOR SOLVENT PROCESS - 11/17/2025 9:40 AM EXTRACTOR OPERATOR SOLVENT PROCESS Surgery [facility] Endoscopy [address] [place] [address] Michael Goodrich, DO [address] [place] [address] COLONOSCOPY Scheduled Procedures Name Priority Associated Diagnoses Date/Ti me COLONOSCOPY Family history of colon cancer in father 11/17/2025 9:20 AM EXTRACTOR OPERATOR SOLVENT PROCESS documented as of this encounter Goals Goal Patient Goal Type Associated Problems Recent Progress Patient-Stated? Author Autogenerat ed Goal Care Plan Autogenerated Problem No Floresita, Carolyn Senia documented as of this encounter Visit Diagnoses Not on filedocumented in this encounter Additional Health Concerns Active Problems Noted Date Diagnosed Date Autogenerated Problem 06/23/2025 documented as of this encounter Care Teams Contact Lens Molder Relationship Specialty Start Date End Date Johnny Cornelius MD [address] [place] [address] PCP - General Family Practice 12/28/24 documented as of this encounter
--- OUTSIDE RECORDS SUMMARY | 2025-10-15 10:06 | XMS_ITS | Encounter Summary ---
Author Organization [facility] Address [address] [facility] Attn: [place] [address] Care Team Providers Care Ore Buyer Name Role Phone Unavailable Primary Care Provider Unavailabl e Encounter Details Date Type Department Care Team (Latest Contact Info) Description 07/22/2002 Emergency Juan Diego Ramos MD NO ADDRESS ON FILE Social History Tobacco Use Types Packs/Day Years Used Date Smoking Tobacco: Never Assessed Sex and Gender Information Value Date Recorded Sex Assigned at Not on file Legal Sex Male 5:17 AM LOOM FIXER Gender Identity Not on file Sexual Orientation Not on file documented as of this encounter Plan of Treatment Not on file documented as of this encounter Visit Diagnoses Not on filedocumented in this encounter
[2025-10-15] MEDS: iohexol 350 mg/mL 500 mL Btl (per mL) IV (10:14)
[2025-10-15 10:15] LABS: Hematocrit 43.7 % (37-53); Hemoglobin 14.20 g/dL (11.27-16.99); Mean Corpuscular HGB Conc 32.5 g/dL (30-55); Mean Corpuscular Hemoglobin 24.5 pg (27-33); Mean Corpuscular Volume 75.5 fl (82-101); Nucleated Red Blood Cells % 0 %; Platelet Count 257 10^3/cmm (157-399); Red Blood Count 5.79 10^6/uL (3.85-5.65); White Blood Count 7.02 10^3/uL (3.29-11.43)
[2025-10-15] MEDS: ondansetron 2 mg/ML SDV 2 mL 4 MG IVP (10:33)
[2025-10-15 10:42] LABS: Alanine Aminotransferase 18 U/L (0-41); Albumin Level 4.8 g/dL (3.5-5.2); Alkaline Phosphatase 80 U/L (40-130); Anion Gap 16.4 (5-19); Aspartate Amino Transferase 18 U/L (0-40); Blood Urea Nitrogen 16 mg/dL (6-20); Calcium 9.3 mg/dL (8.5-10.5); Carbon Dioxide 25 mmol/L (22-29); Chloride 99 mmol/L (98-107); Globulin 3.1 g/dL (1.3-4.6); Glucose 102 mg/dL (65-115); Lipase 113 U/L (13-60); Osmolality Calculated 285 mOsm/kg (285-295); Potassium 3.4 mmol/L (3.5-5.1); Sodium 137 mmol/L (136-145); Total Protein 7.9 g/dL (6.6-8.7)
[2025-10-15 11:10] VITALS: BP 181/99; PULSE 81; O2SAT 99
--- NOTE | 2025-10-17 16:17 | DCPLANNER ---
messaged ortho for er f/u
== END 2025-10-15 11:11 | disposition home or self-care (01) ==
PROVIDERS: Emergency Provider Emergency Medicine
DX: K57.32 Diverticulitis of large intestine without perforation or abscess without bleeding (principal)
CPT/HCPCS: 36415; 74177; 80053; 83690; 85025; 96361; 96374; 99285; J2405; J7030